=== PATIENT | male | born 1980 ===

== ENCOUNTER 2018-10-18 19:46 | Emergency (ER) | payer SELFPAY ==
[2018-10-18 20:04] VITALS: BP 133/88; PULSE 90; RESP 18; TEMP 98.3; O2SAT 95
[2018-10-18] MEDS ORDERED: Tobramycin 0.3% OPHT SOLN OU STA (20:24)
--- NOTE | 2018-10-18 20:51 | C.PDOC ---
History Of Present Illness Patient presents to ED c/o B/L eye discomfort and redness, as well as clear discharge, since tuesday. Patient denies fever/chills, cough, runny nose, sore throat, visual changes, contact lens use. headache, dizziness. He denies foreign body sensation or injuries. Time Seen by Provider: 10/18/18 20:05 Chief Complaint (Nursing): Eye Problem History Per: Patient History/Exam Limitations: no limitations Onset/Duration Of Symptoms: Days (4) Current Symptoms Are (Timing): Still Present Severity: Moderate Past Medical History Reviewed: Historical Data, Nursing Documentation, Vital Signs Vital Signs: Last Vital Signs Temp 98.3 F 10/18/18 20:03 Pulse 90 10/18/18 20:03 Resp 18 10/18/18 20:03 BP 133/88 10/18/18 20:03 Pulse Ox 95 10/18/18 20:03 - Medical History PMH: No Chronic Diseases Family History: States: No Known Family Hx - Social History Hx Alcohol Use: No Hx Substance Use: No - Immunization History Hx Tetanus Toxoid Vaccination: No Hx Influenza Vaccination: No Hx Pneumococcal Vaccination: No Review Of Systems Constitutional: Negative for: Fever, Chills Eyes: Positive for: Conjunctivae Inflammation, Redness ENT: Negative for: Ear Pain, Nose Congestion, Throat Pain Cardiovascular: Negative for: Chest Pain, Palpitations Respiratory: Negative for: Cough, Shortness of Breath Skin: Negative for: Rash Neurological: Negative for: Headache, Dizziness Physical Exam - Physical Exam Appears: Well, Non-toxic, In Acute Distress (in mild discomfort ) Skin: Normal Color, Warm, Dry, No Rash Eye(s): bilateral: PERRL, EOMI (no pain with EOM movement), Other (diffuse scleral and conjunctival injection, mild clear discharge B/L, no purulence) Oral Mucosa: Moist Cardiovascular: Rhythm Regular Respiratory: Normal Breath Sounds, No Rales, No Rhonchi, No Wheezing Neurological/Psych: Oriented x3, Normal Speech, Normal Cognition Gait: Steady ED Course And Treatment O2 Sat by Pulse Oximetry: 95 (RA) Pulse Ox Interpretation: Normal Progress Note: Patient given PO Ibuprofen and Tobradex eye drops in ED, as well as Rxs for same. He was instructed to follow up with opthamology tomorrow in the office. Patient understands he should return to ED if symptoms worsen. Reevaluation Time: 20:50 Reassessment Condition: Improved Disposition Counseled Patient/Family Regarding: Diagnosis, Need For Followup, Rx Given - Disposition Referrals: Eron Sweet [Staff Provider] - Disposition: HOME/ ROUTINE Disposition Time: 20:50 Condition: STABLE Additional Instructions: FOLLOW UP WITH EYE DOCTOR IN THE OFFICE TOMORROW USE DROPS DIRECTED RETURN TO ER IF SYMPTOMS WORSEN Prescriptions: Dexamethasone/Tobramycin [Tobradex 0.1%-0.3% 2.5 Ml] 1 drop OP Q6 #1 bottle Ibuprofen [Motrin Tab] 600 mg PO Q6 PRN #30 tab PRN Reason: fever/pain Instructions: Keratitis (ED) Forms: General Discharge Instructions, [facility] (Mongolian), Work Excuse Print Language: GERMAN - Clinical Impression Clinical Impression: Keratitis
== END 2018-10-18 21:02 | disposition home or self-care (01) ==
LOC: C.ER 19:46
DX: H16.9 Unspecified keratitis (principal)